=== PATIENT | male | born 1950 | race Caucasian/White ===

== ENCOUNTER → 2025-09-29 10:08 | Outpatient (REF) | payer MEDICARE, SELFPAY | LOC: RAD 10:08 | PROVIDERS: ATTENDING PHYSICIAN Internal Medicine Geriatric Medicine; REFERRING PHYSICIAN Internal Medicine | DX: R13.12 Dysphagia, oropharyngeal phase (principal) | CPT/HCPCS: 74246 ==

== ENCOUNTER 2025-10-14 12:05 | Emergency (ER) | payer MEDICARE, SELFPAY ==
[2025-10-14 12:14] VITALS: BP 135/91
[2025-10-14 12:47] LABS: Hematocrit 45.6 % (39.0-52.0); Hemoglobin 15.8 g/dL (13.0-18.0); Mean Corp Hgb Conc. 34.6 g/dL (33.0-37.0); Mean Corpuscular Volume 97.0 fL (80.0-94.0); Nucleated Red Blood Cells % 0 % (-); Platelet Count 160 10^3/uL (130-400); Red Cell Dist. Width 13.7 % (11.5-14.5)
[2025-10-14 13:15] LABS: ALT (SGPT) 42 U/L (0-50); AST (SGOT) 38 U/L (17-59); Albumin 4.1 g/dl (3.5-5.0); Alkaline Phosphatase 95 U/L (38-126); Blood Urea Nitrogen 14 mg/dl (9-20); Calcium 9.1 mg/dl (8.4-10.2); Carbon Dioxide 23 mmol/L (22-30); Chloride 102 mmol/L (98-107); Glucose 139 mg/dl (70-99); Lipase 87 U/L (23-300); Potassium 3.9 mmol/L (3.5-5.1); Sodium 135 mmol/L (135-145); Total Protein 7.1 g/dl (6.3-8.2); eGFR > 60.00
--- NOTE | 2025-10-14 15:32 | ED.GENMED ---
History of Present Illness
<Toni Denise DO, Resident - Last Filed: 10/14/25 19:09>
General
Chief Complaint: Cold/Flu/URI Symptoms
Source: patient
Exam Limitations: none
Time Seen by Provider: 10/14/25 15:10
Nursing documentation reviewed up to this point in time: agreed with
History of Present Illness
History of Present Illness:
Jason Spence is a 74M w/ PMHx of HTN, HLD, GERD, with recent Upper GI study showing plum sized sliding hiatal hernia who is presenting with flu-like sx and inability to tolerate PO secondary to nausea and vomiting. Patients sx started 2 days ago
with sore throat which progressed to weakness and SOB. Went to urgent care, tested positive for flu, negative for COVID, started on Tamiflu. Patient continues to have symptoms and last night started having nausea and vomiting, with additonal
episodes this AM, now unable to keep down fluids and medications. Patient also endorsing fevers this AM with Tmax of 102. Associated symptoms include cough.
Review of Systems
<Toni Denise DO, Resident - Last Filed: 10/14/25 19:09>
Review of Systems
Allergies reviewed?: Yes
All Other Systems: ROS reviewed and negative except as documented in HPI and ROS
Phy Exam
<Toni Denise DO, Resident - Last Filed: 10/14/25 19:09>
Physical Exam
Physical Exam:
General: well-developed, well nourished male, no acute respiratory distress, one episode of vomiting during interview (mucuous)
HEENT: normocephalic, atraumatic. Posterior oropharynx is patent without tonsiallar or uvular swelling. No erythema or exudate.
Respiratory: occasional rhonchi that clears with cough. Otherwise no tachypnea, wheezing, or rales.
CV: RRR, no murmurs, rubs, or gallops.
Neuro: awake, alert
Psych: calm, normal affect
Scores
<Toni Denise DO, Resident - Last Filed: 10/14/25 19:09>
Heart Failure Risk
Heart Failure Risk Score: Not Applicable
Heart Score for Chest Pain Patients
STEMI patient?: Not applicable
Withdrawal Assessment of Alcohol
Withdrawal Assessment Completed?: Not applicable
Course
<Toni Denise DO, Resident - Last Filed: 10/14/25 19:09>
Orders/Labs/Results
Orders:
Orders
10/14/25 12:29
Complete Blood Count/With Diff Urgent
Comprehensive Metabolic Panel Urgent
Lipase Urgent
10/14/25 16:08
0.9% Sodium Chloride 1000 ml [Nss] 1,000 ml IV BOLUS
Ondansetron HCl [Zofran] 4 mg PO NOW STA
10/14/25 16:09
CR Chest - 2 Views Urgent
Comment:
Reason For Exam: known HH, poor po intake
Abnormal Lab Results
10/14/25
12:29
WBC 11.3 H 10^3/uL
(4.8-10.8)
MCV 97.0 H fL
(80.0-94.0)
MCH 33.6 H pg
(27.0-31.0)
Abs Immat Gran (auto) 0.1 H 10^3/uL
(0-0.05)
Absolute Neuts (auto) 9.3 H 10^3/uL
(1.4-6.5)
Absolute Lymphs (auto) 0.9 L 10^3/uL
(1.2-3.4)
Absolute Monos (auto) 1.0 H 10^3/uL
(0.1-0.6)
Neutrophils % 81.9 H %
(42.2-75.2)
Lymphocytes % 8.1 L %
(20.5-51.1)
Glucose 139 H mg/dl
(70-99)
10/14/25 12:29
10/14/25 12:29
Vital Signs
Initial and Last Documented VS:
Initial Vital Signs
Temp Pulse Resp BP Pulse Ox
98.3 F 89 18 135/91 95
10/14/25 12:14 10/14/25 12:14 10/14/25 12:14 10/14/25 12:14 10/14/25 12:14
Last Documented Vital Signs
Temp Pulse Resp BP Pulse Ox
98.3 F 83 18 135/77 94
10/14/25 12:14 10/14/25 16:43 10/14/25 16:43 10/14/25 16:43 10/14/25 16:43
<Jose Alfredo Encarnacion, DO - Last Filed: 10/14/25 17:51>
Orders/Labs/Results
Orders:
Orders
10/14/25 12:29
Complete Blood Count/With Diff Urgent
Comprehensive Metabolic Panel Urgent
Lipase Urgent
10/14/25 16:08
0.9% Sodium Chloride 1000 ml [Nss] 1,000 ml IV BOLUS
Ondansetron HCl [Zofran] 4 mg PO NOW STA
10/14/25 16:09
CR Chest - 2 Views Urgent
Comment:
Reason For Exam: known HH, poor po intake
Abnormal Lab Results
10/14/25
12:29
WBC 11.3 H 10^3/uL
(4.8-10.8)
MCV 97.0 H fL
(80.0-94.0)
MCH 33.6 H pg
(27.0-31.0)
Abs Immat Gran (auto) 0.1 H 10^3/uL
(0-0.05)
Absolute Neuts (auto) 9.3 H 10^3/uL
(1.4-6.5)
Absolute Lymphs (auto) 0.9 L 10^3/uL
(1.2-3.4)
Absolute Monos (auto) 1.0 H 10^3/uL
(0.1-0.6)
Neutrophils % 81.9 H %
(42.2-75.2)
Lymphocytes % 8.1 L %
(20.5-51.1)
Glucose 139 H mg/dl
(70-99)
10/14/25 12:29
10/14/25 12:29
Vital Signs
Initial and Last Documented VS:
Initial Vital Signs
Temp Pulse Resp BP Pulse Ox
98.3 F 89 18 135/91 95
10/14/25 12:14 10/14/25 12:14 10/14/25 12:14 10/14/25 12:14 10/14/25 12:14
Last Documented Vital Signs
Temp Pulse Resp BP Pulse Ox
98.3 F 83 18 135/77 94
10/14/25 12:14 10/14/25 16:43 10/14/25 16:43 10/14/25 16:43 10/14/25 16:43
<Toni Denise DO, Resident - Last Filed: 10/14/25 19:09>
MDM/Problems Addressed
Differential Diagnosis Includes:
Influenza, COVID, viral illness, GERD, aspiration pneumonia, viral pneumonia, bacterial pneumonia
MDM/Problems Addressed:
74M who tested positive for flu but was having trouble keeping down fluids and medications secondary to nausea and vomiting. Patient does have a recent history of dysphagia that was diagnosed as a sliding hiatal hernia. physical examination reveals
occasional rhonchi that clear with cough, otherwise no abnormalities. Leukocytosis noted, consistent with positive flu as tested prior to arrival. We did a chest x-ray to rule out aspiration pneumonia in the setting of recent dysphagia
complaints. Chest x-ray was negative for aspiration or pneumonia. Patient was given Zofran with improvement in nausea, p.o. challenge successful, patient to be discharged home with prescription for Zofran and instructions to continue other
medications prescribed by previous provider including Tamiflu and Mucinex. Return precautions given.
<Toni Denise DO, Resident - Last Filed: 10/14/25 19:09>
*Pulse Oximetry
SaO2: 95
Oxygen Mode of Delivery: Room air
Patient hypoxic: no
*Critical Care Note
Total Time (30-74mins, 75-104mins- exclusive of procedures): Not Applicable
ED Attending Note
<Toni Denise DO, Resident - Last Filed: 10/14/25 19:09>
-
Portions of this chart may have been created with voice recognition software.� Occasional wrong word or��sound alike� substitutions may have occurred due to the inherent limitations of voice recognition software.
<Jose Alfredo Encarnacion DO - Last Filed: 10/14/25 17:51>
ED Attending Note
Patient seen and examined by attending physician: Yes
I performed a history and physical exam of patient and discussed management with resident, I reviewed resident's note and agree with documented findings and plan of care.: Yes
ED Attending Note:
I evaluated the patient at bedside, minimal leukocytosis noted however vital signs are unremarkable, lymphocytopenia noted suggestive of viral syndrome, chemistries unremarkable, chest x-ray shows no acute abnormality. He was given IV fluids. He
feels much improved. He is now able to tolerate p.o. Will give prescription for Zofran as well.
Discharge Plan
Departure
Patient Disposition: Home (Routine Discharge)
Date of Disposition: 10/14/25
Time of Disposition: 17:56
Patient with high blood pressure during this ER visit?: No
Condition: Good
Discharge Problem:
Influenza, Nausea & vomiting
Prescriptions:
New
ondansetron 4 mg tablet,disintegrating
4 mg PO Q6H Qty: 20 0RF
Referrals:
Mary Polo MD [Family Provider, Internal Medicine]
Activity Restrictions/Additional Instructions:
You have been prescribed Zofran 4mg, which you can take as needed every 6 hours. This should help you keep hydrated and take other medications for your viral illness.
You can continue to take Tamiflu as prescribed by your prior urgent care visit. You can continue to take Mucinex to break up the mucous in your chest.
Continue to stay hydrated and take rest for a few days.
Return to the Emergency Department if you have uncontrollable fevers or complete inability to keep liquids down, or severe shortness of breath.
Otherwise you may follow up with your PCP or urgent care if your symptoms do no resolve.
Interventions
Interventions:
*General Assessment Last Done: 10/14/25 12:14
*Neglect/Abuse Screening Last Done: 10/14/25 12:14
*ED COVID-19 Vaccine History Last Done: 10/14/25 12:14
*ED Influenza Vaccine History Last Done: 10/14/25 12:14
[facility] Risk Assessment Tool Last Done: 10/14/25 15:51
*Risk Screen - Suicide (C-SSRS) Last Done: 10/14/25 12:14
*Nursing Disposition Last Done: 10/14/25 18:15
ED- Pulmonary Assessment Last Done: 10/14/25 15:51
Discharge Date and Time
Discharge Date/Time: 10/14/25 18:16
Print Language: SERBIAN
[2025-10-14 15:49] VITALS: BMI 38.0
[2025-10-14] MEDS: ZOFRAN 4 MG PO (16:34)
[2025-10-14] MEDS: NSS 1000 IV (16:40)
[2025-10-14 16:43] VITALS: BP 135/77
== END 2025-10-14 18:16 | disposition home or self-care (01) ==
LOC: EMR 12:05
PROVIDERS: Emergency Medicine; EMERGENCY PHYSICIAN Emergency Medicine; FAMILY PHYSICIAN Internal Medicine Geriatric Medicine
DX: J11.1 Influenza due to unidentified influenza virus with other respiratory manifestations (principal); R11.2 Nausea with vomiting, unspecified; I10 Essential (primary) hypertension; E78.5 Hyperlipidemia, unspecified
CPT/HCPCS: 96360; 99284; 71046; 80053; 83690; 85025